=== PATIENT | male | born 1935 | race Caucasian/White ===

== ENCOUNTER → 2016-11-13 | Outpatient (CLI) | payer MEDICARE, OTHER ==
[~2016-11-13] MED LIST: FOLIC ACID 1 MG1 MG PO; VITAMIN B-1000 MCG/M IM
== END ==
LOC: LAB 12:44
PROVIDERS: Internal Medicine Nephrology
DX: N18.4 Chronic kidney disease, stage 4 (severe) (principal)
CPT/HCPCS: 36415; 80048

== ENCOUNTER 2016-11-14 18:36 | Emergency (ER) | payer MEDICARE, OTHER | END 2016-11-14 20:36 | disposition left against medical advice (07) | LOC: ER1 18:36 | DX: R07.89 Other chest pain (principal); N18.9 Chronic kidney disease, unspecified; J44.9 Chronic obstructive pulmonary disease, unspecified | CPT/HCPCS: 93005; 99283 ==

== ENCOUNTER 2017-01-15 09:46 | Emergency (ER) | payer MEDICARE, OTHER ==
[2017-01-15 10:06] LABS: RED BLOOD COUNT 4.7 M/UL (4.20-5.50); WHITE BLOOD COUNT 6.3 K/UL (4.5-11.0)
== END 2017-01-15 14:15 | disposition home or self-care (01) ==
LOC: ER1 09:46
PROVIDERS: Family Medicine
DX: R07.1 Chest pain on breathing (principal); I25.2 Old myocardial infarction; J44.9 Chronic obstructive pulmonary disease, unspecified; I12.9 Hypertensive chronic kidney disease with stage 1 through stage 4 chronic kidney disease, or unspecified chronic kidney disease; N18.9 Chronic kidney disease, unspecified; Z87.891 Personal history of nicotine dependence; Z86.73 Personal history of transient ischemic attack (TIA), and cerebral infarction without residual deficits
CPT/HCPCS: 36415; 71010; 80053; 82550; 82553; 83874; 84484; 85025; 93005; 99285

== ENCOUNTER → 2017-01-23 | Outpatient (CLI) | payer MEDICARE, OTHER | LOC: LAB 14:13 | PROVIDERS: Internal Medicine Nephrology | DX: N18.3 Chronic kidney disease, stage 3 (moderate) (principal) | CPT/HCPCS: 36415; 80048; 81001; 82043; 82570 ==